=== PATIENT | female | born 1935 | race Caucasian/White ===

== ENCOUNTER 2016-09-24 10:30 | Inpatient (IN) | payer MEDICARE, BC ==
[~2016-09-24] VITALS: Ht 154.9 cm; Wt 77.2 kg
[2016-09-24] MEDS: WARFARIN 2.5 MG TABLET PO-COUM SCH (07:38)
[~2016-09-24 10:30] MED LIST: ASCO10004 PO; ASPI-496 PO; ATOR40TA78 PO; CALC-72 PO; CHLO25TA PO; CHOL20002 PO; ESTR1TAB15 PO; FLEC100T PO; HYDR-3342 PO; MEDR2.5T30 PO; MELO7.5T5 PO; MULT-658 PO; OMEP40CA6 PO; PHYT10AM IM; SPIR25TA PO; UBID100C11 PO; VALS320T2 PO; VITA1CAP PO; WARF2.5T73 PO; WARF5TAB7 PO
[2016-09-24] MEDS ORDERED: HEPARIN 1,000 UNITS/ML, 10ML ONE (12:16)
[2016-09-24] MEDS ORDERED: ROCURONIUM 10 MG/ML ONE (12:16)
[2016-09-24] MEDS ORDERED: NEOSTIGMINE 1 MG/ML, 10ML ONE (12:16)
[2016-09-24] MEDS ORDERED: THROMBIN 20,000 UNIT VIAL TP ONE (12:16)
[2016-09-24] MEDS ORDERED: FENTANYL PF 100 MCG/2ML ONE (12:16)
[2016-09-24] MEDS ORDERED: MIDAZOLAM 1 MG/ML, 2ML ONE (12:16)
[2016-09-24] MEDS ORDERED: SUCCINYLCHOLINE 20 MG/ML, 10ML ONE (12:16)
[2016-09-24] MEDS ORDERED: OXYcodone 5 MG/5 ML ORAL.SOL UDC ONE (12:16)
[2016-09-24] MEDS ORDERED: PROPOFOL 10 MG/ML, 20ML ONE (12:16)
[2016-09-24] MEDS ORDERED: PROTAMINE SULFATE 10 MG/ML, 5ML ONE (12:16)
[2016-09-24] MEDS ORDERED: HYDROmorphone 1 MG/ML, 1ML ONE (12:16)
[2016-09-24] MEDS ORDERED: CEFAZOLIN 1,000 MG ONE (12:16)
[2016-09-24] MEDS ORDERED: GLYCOPYRROLATE 0.2MG/1ML ONE (12:16)
[2016-09-24] MEDS ORDERED: BACITRACIN 50,000 UNIT ONE (12:16)
[2016-09-24] MEDS: D5%-0.45NACL+KCL 20MEQ 1,000 ML IV SCH (21:34)
[2016-09-24] MEDS: ZOLPIDEM 5MG TABLET PO PRN (22:13)
[2016-09-24] MEDS: ACETAMINOPHEN 500 MG TABLET PO SCH (23:12)
[2016-09-24] MEDS: FLECAINIDE 100MG TABLET PO SCH (23:13)
[2016-09-25] MEDS: ZOLPIDEM 5MG TABLET PO PRN (00:37)
[2016-09-25] MEDS: OXYcodone 5 MG/5 ML ORAL.SOL UDC PO PRN ×2 (04:05→13:00)
[2016-09-25] MEDS: ACETAMINOPHEN 500 MG TABLET PO SCH ×3 (04:58→17:20)
[2016-09-25] MEDS ORDERED: ACETAMINOPHEN 500 MG TABLET ONE ×2 (08:20→17:49)
[2016-09-25] MEDS: ASPIRIN 81 MG TABLET EC PO SCH (08:30)
[2016-09-25] MEDS: VALSARTAN 320 MG TABLET PO SCH (08:30)
[2016-09-25] MEDS: ASCORBIC ACID 500 MG TABLET PO SCH (08:30)
[2016-09-25] MEDS: CHLORTHALIDONE 25 MG TABLET PO SCH (08:30)
[2016-09-25] MEDS: CHOLECALCIFEROL 1,000 UNIT TABLET PO SCH (08:30)
[2016-09-25] MEDS: SPIRONOLACTONE 50 MG TABLET PO SCH (08:30)
[2016-09-25] MEDS: ESTRADIOL 1 MG TABLET PO SCH (08:30)
[2016-09-25] MEDS: MULTIVITS,STRESS FORMULA 1 TABLET PO SCH (08:30)
[2016-09-25] MEDS: FLECAINIDE 100MG TABLET PO SCH ×2 (08:30→22:13)
[2016-09-25] MEDS: D5%-0.45NACL+KCL 20MEQ 1,000 ML IV SCH (08:30)
[2016-09-25] MEDS: CALCIUM/VITAMIN D3 250-125 TABLET PO SCH (08:30)
[2016-09-25] MEDS: OMEPRAZOLE 20 MG CAPSULE.DR PO SCH (16:00)
[2016-09-25] MEDS: WARFARIN 2.5 MG TABLET PO-COUM SCH (17:45)
[2016-09-25 19:30] VITALS: BP 167/61
[2016-09-25] MEDS ORDERED: DIPHENHYDRAMINE 25 MG CAPSULE PO PRN (21:00)
[2016-09-25] MEDS ORDERED: ATORVASTATIN 40 MG TABLET PO SCH (21:00)
[2016-09-25] MEDS ORDERED: HYDROcodone/APAP 5/325 TABLET ONE (21:57)
[2016-09-25] MEDS ORDERED: DIPHENHYDRAMINE 25 MG CAPSULE ONE (21:58)
[2016-09-25] MEDS ORDERED: ZOLPIDEM 5MG TABLET ONE (22:08)
[2016-09-25] MEDS: HYDROcodone/APAP 5/325 TABLET PO PRN (22:12)
[2016-09-25] MEDS: POTASSIUM CHLORIDE 20 MEQ TAB.ER.PRT PO SCH (22:24)
[2016-09-25] MEDS ORDERED: TRIAZOLAM 0.125 MG TABLET PO PRN (23:45)
[2016-09-25] MEDS ORDERED: HYDROmorphone 1 MG/ML, 1ML IV PRN ×4 (23:45)
[2016-09-25] MEDS ORDERED: ACETAMINOPHEN 325 MG TABLET PO PRN (23:45)
[2016-09-25] MEDS ORDERED: ONDANSETRON 2MG/ML, 2ML IVPush PRN (23:45)
[2016-09-25] MEDS ORDERED: FENTANYL PF 100 MCG/2ML IV PRN (23:45)
[2016-09-25] MEDS ORDERED: morphine SULFATE 10 MG/ML, 1ML IVPush PRN (23:45)
[2016-09-25] MEDS ORDERED: D5%-0.45NACL+KCL 20MEQ 1,000 ML IV SCH (23:45)
[2016-09-25] MEDS ORDERED: OXYcodone IR 5MG TABLET PO PRN (23:45)
[2016-09-26] MEDS: ACETAMINOPHEN 500 MG TABLET PO SCH ×2 (02:03→05:57)
[2016-09-26 02:40] VITALS: BP 133/63
[2016-09-26] MEDS: ASPIRIN 81 MG TABLET EC PO SCH (05:58)
[2016-09-26] MEDS: HYDROcodone/APAP 5/325 TABLET PO PRN ×2 (05:58→10:40)
[2016-09-26] MEDS: OMEPRAZOLE 20 MG CAPSULE.DR PO SCH (07:30)
[2016-09-26] MEDS: POTASSIUM CHLORIDE 20 MEQ TAB.ER.PRT PO SCH (08:00)
[2016-09-26 08:02] VITALS: BP 160/66
[2016-09-26] MEDS: ASCORBIC ACID 500 MG TABLET PO SCH (09:00)
[2016-09-26] MEDS: CHLORTHALIDONE 25 MG TABLET PO SCH (09:00)
[2016-09-26] MEDS: CHOLECALCIFEROL 1,000 UNIT TABLET PO SCH (09:00)
[2016-09-26] MEDS ORDERED: MULTIVITAMIN 1 TABLET PO SCH (09:00)
[2016-09-26] MEDS: CALCIUM/VITAMIN D3 250-125 TABLET PO SCH (09:00)
[2016-09-26] MEDS: SPIRONOLACTONE 50 MG TABLET PO SCH (09:00)
[2016-09-26] MEDS: ESTRADIOL 1 MG TABLET PO SCH (09:00)
[2016-09-26] MEDS: MULTIVITS,STRESS FORMULA 1 TABLET PO SCH (09:00)
[2016-09-26] MEDS ORDERED: MELOXICAM 15 MG TABLET PO SCH (09:00)
[2016-09-26] MEDS: VALSARTAN 320 MG TABLET PO SCH (09:00)
[2016-09-26] MEDS ORDERED: MEDROXYPROGESTERONE ACETATE 2.5 MG TABLET PO SCH (09:00)
[2016-09-26] MEDS ORDERED: HYDR-3240 PO (10:49)
[2016-09-26 14:46] LABS: BLOOD UREA NITROGEN 12 mg/dL (7-18)
[2016-09-27] MEDS ORDERED: WARFARIN 5 MG TABLET PO-COUM SCH (18:00)
== END 2016-09-26 11:00 | disposition home or self-care (01) | DRG 254 ==
LOC: RAD 10:30 → 4NOR 09-25 18:00 → RAD 09-25 18:00 → 4NOR 09-25 20:37 → DCLOUNGE 09-26 10:46
PROVIDERS: ADMIT Surgery; ATTEND Surgery
PROC: 04CK0ZZ Extirpation of Matter from Right Femoral Artery, Open Approach (ICD-10-PCS; 2016-09-24)
PROC: 04UL07Z Supplement Left Femoral Artery with Autologous Tissue Substitute, Open Approach (ICD-10-PCS; 2016-09-24)
PROC: 04UK07Z Supplement Right Femoral Artery with Autologous Tissue Substitute, Open Approach (ICD-10-PCS; 2016-09-24)
PROC: 06BM0ZZ Excision of Right Femoral Vein, Open Approach (ICD-10-PCS; 2016-09-24)
PROC: B41D1ZZ Fluoroscopy of Aorta and Bilateral Lower Extremity Arteries using Low Osmolar Contrast (ICD-10-PCS; 2016-09-24)
PROC: 04CL0ZZ Extirpation of Matter from Left Femoral Artery, Open Approach (ICD-10-PCS; principal; 2016-09-24 13:00)
DX: I70.213 Atherosclerosis of native arteries of extremities with intermittent claudication, bilateral legs (principal); I48.91 Unspecified atrial fibrillation; E66.3 Overweight; K21.9 Gastro-esophageal reflux disease without esophagitis; M19.90 Unspecified osteoarthritis, unspecified site; Z68.32 Body mass index [BMI] 32.0-32.9, adult
CPT/HCPCS: 36415; 75630; 76937; 80048; 85025; 85610; 85730; 86850; 86900; J0690; J1170; J1644; J2250; J2704; J2710; J2720; J3010; J3490; C1751; C1769; C1894; J0330; J3480; Q0163

== ENCOUNTER 2018-01-10 10:45 | Observation (INO) | payer MEDICARE, BC ==
[~2018-01-10] VITALS: Ht 152.4 cm; Wt 64.0 kg
[2018-01-10 05:43] VITALS: BP 121/34
[~2018-01-10 10:45] MED LIST changes: +ATOR40TA PO; +CALC-534 PO; -CALC-72 PO; -CHOL20002 PO; +CHOL200052 PO; +HYDR-3240 PO; +IRBE300T16 PO; +LIDOCAINE-MPF 2%, 2ML ONE; -UBID100C11 PO; +UBID100C41 PO; +WARF-36 PO; -WARF5TAB7 PO
[2018-01-10 11:19] VITALS: BP 135/72
[2018-01-10 11:21] LABS: BASOPHILS # (AUTO) 0.02 x10^3/uL (0-0.1); BASOPHILS % (AUTO) 0 % (0-1); EOSINOPHILS # (AUTO) 0.12 x10^3/uL (0-0.4); EOSINOPHILS % (AUTO) 1 % (1-7); LYMPHOCYTES # (AUTO) 1.95 x10^3/uL (1-3.4); LYMPHOCYTES % (AUTO) 20 % (22-44); MD NO; MEAN CORPUSCULAR HEMOGLOBIN 31.9 pg (27.0-34.8); MEAN CORPUSCULAR HGB CONC 34.2 g/dL (32.4-35.8); MEAN CORPUSCULAR VOLUME 93.3 fL (80-100); MEAN PLATELET VOLUME 8.1 fL (7.4-10.4); MONOCYTES # (AUTO) 0.66 x10^3/uL (0.2-0.8); MONOCYTES % (AUTO) 7 % (2-9); NEUTROPHILS # (AUTO) 6.89 x10^3/uL (1.8-6.8); NEUTROPHILS % (AUTO) 72 % (42-75); PLATELET COUNT 267 x10^3/uL (130-400); RED CELL DISTRIBUTION WIDTH 14.7 % (9.6-15.2)
[2018-01-10] MEDS: D5%-0.45% NACL 1,000 ML IV SCH ×2 (11:23→21:48)
[2018-01-10 11:29] LABS: INTERNATIONAL NORMALIZED RATIO 1.07 (0.93-1.1); PROTHROMBIN TIME 11.1 Seconds (9.6-11.5)
[2018-01-10 11:31] LABS: ANION GAP 7 mmol/L (5-15); CALCIUM 8.9 mg/dL (8.5-10.1); CHLORIDE 107 mmol/L (98-107)
[2018-01-10] MEDS ORDERED: ALTEPLASE 10 MG in SODIUM CHLORIDE 0.9% 90 ML IV SCH (13:30)
[2018-01-10] MEDS ORDERED: HEPARIN 25,000 UNITS/500ML PMX 500 ML IV PRN (13:30)
[2018-01-10] MEDS ORDERED: ONDANSETRON 2MG/ML, 2ML IV PRN (13:30)
[2018-01-10] MEDS ORDERED: CATHFLO-ALTEPLASE 2 MG/2 ML CATHFLUSH ONE (13:30)
[2018-01-10] MEDS ORDERED: HEPARIN 25,000 UNITS/500ML PMX 500 ML ONE (13:32)
[2018-01-10] MEDS ORDERED: hydrALAzine 20 MG/ML, 1ML ONE (15:02)
[2018-01-10] MEDS: hydrALAzine 20 MG/ML, 1ML IV PRN ×2 (15:06→16:02)
[2018-01-10 15:30] LABS: FIBRINOGEN 327 mg/dL (200-340); PARTIAL THROMBOPLASTIN TIME 28 Seconds (25-31)
[2018-01-10] MEDS: SODIUM CHLORIDE 0.9% 1,000 ML IV SCH ×2 (16:22→21:48)
[2018-01-10] MEDS ORDERED: ZOLPIDEM 5MG TABLET PO PRN (21:00)
[2018-01-10] MEDS ORDERED: WARFARIN 5 MG TABLET PO-COUM SCH (21:00)
[2018-01-10] MEDS: ENOXAPARIN 60 MG/0.6 ML SQ SCH (21:48)
[2018-01-11] MEDS: morphine SULFATE 10 MG/ML, 1ML IVPush PRN ×2 (01:26→01:52)
[2018-01-11] MEDS: SODIUM CHLORIDE 0.9% 1,000 ML IV SCH (01:52)
[2018-01-11] MEDS: ENOXAPARIN 60 MG/0.6 ML SQ SCH (09:23)
== END 2018-01-11 15:16 | disposition home or self-care (01) ==
LOC: OUT 10:45 → ORIP 13:30 → CCU 14:34
PROVIDERS: ADMIT Surgery; ATTEND Surgery
DX: I74.3 Embolism and thrombosis of arteries of the lower extremities (principal); I70.202 Unspecified atherosclerosis of native arteries of extremities, left leg
CPT/HCPCS: 36415; 37211; 37225; 75630; 76937; 80048; 85025; 85384; 85610; 85730; 87081; 96365; 96366; 96368; 96375; 96376; 99156; 99157; C1725; C1751; C1769; C1884; C1894; G0378; J0360; J1644; J1650; J2250; J2270; J2997; J3010; J3490; J7030; 37214; J2720; J2310

== ENCOUNTER 2018-07-17 15:32 | Inpatient (IN) | payer MEDICARE, BC ==
[~2018-07-17] VITALS: Ht 152.4 cm; Wt 70.1 kg
[~2018-07-17 15:32] MED LIST changes: -LIDOCAINE-MPF 2%, 2ML ONE; +WARF2.5T32 PO; -WARF2.5T73 PO
--- NOTE | 2018-07-17 15:50 | NUR ---
Patient in [place].
[2018-07-17 16:02] LABS: BASOPHILS # (AUTO) 0.06 x10^3/uL (0-0.1); BASOPHILS % (AUTO) 1 % (0-1); EOSINOPHILS # (AUTO) 0.18 x10^3/uL (0-0.4); EOSINOPHILS % (AUTO) 2 % (1-7); LYMPHOCYTES # (AUTO) 2.33 x10^3/uL (1-3.4); LYMPHOCYTES % (AUTO) 24 % (22-44); MD NO; MEAN CORPUSCULAR HEMOGLOBIN 29.9 pg (27.0-34.8); MEAN CORPUSCULAR HGB CONC 32.9 g/dL (32.4-35.8); MEAN PLATELET VOLUME 7.7 fL (7.4-10.4); MONOCYTES % (AUTO) 8 % (2-9); NEUTROPHILS # (AUTO) 6.17 x10^3/uL (1.8-6.8); NEUTROPHILS % (AUTO) 65 % (42-75); PLATELET COUNT 335 x10^3/uL (130-400); RED BLOOD COUNT 4.49 x10^6/uL (3.82-5.3)
[2018-07-17 16:05] LABS: INTERNATIONAL NORMALIZED RATIO 1.97 (0.93-1.1); PROTHROMBIN TIME 20.2 Seconds (9.6-11.5)
[2018-07-17 16:07] LABS: ALANINE AMINOTRANSFERASE 30 U/L (12-78); ALBUMIN 3.7 g/dL (3.4-5.0); ANION GAP 6 mmol/L (5-15); CALCIUM 9.1 mg/dL (8.5-10.1); CHLORIDE 106 mmol/L (98-107)
[2018-07-17 16:10] LABS: ALKALINE PHOSPHATASE 86 U/L (45-117); BILIRUBIN,TOTAL 0.3 mg/dL (0.2-1.0); TOTAL PROTEIN 6.7 g/dL (6.4-8.2)
--- NOTE | 2018-07-17 16:24 | NUR ---
[place] from [place] aware.
[2018-07-17] MEDS ORDERED: OMEG1CAP23 PO (16:41)
[2018-07-17] MEDS ORDERED: HYDR25TA6 PO (16:41)
--- NOTE | 2018-07-17 16:47 | NUR ---
IV started. VSS. Registration at bedside.
--- NOTE | 2018-07-17 17:13 | NUR ---
Per MD. Unable to obtain left dorsalis pedis pulse via doppler. Foot warm to touch.
[2018-07-17] MEDS ORDERED: HYDR-3342 PO (17:14)
[2018-07-17] MEDS ORDERED: DOXY100C PO (17:14)
--- NOTE | 2018-07-17 18:01 | NUR ---
Dawson Trivedi NP ([facility]) at bedside evaluating patient.
--- NOTE | 2018-07-17 19:14 | NUR ---
Ambulated with a steady gait to the restroom.
--- NOTE | 2018-07-17 19:22 | NUR ---
Report AVEL Paiz.
[2018-07-17] MEDS ORDERED: POLYETHYLENE GLYCOL 17 GM PACKET PO PRN (20:00)
[2018-07-17] MEDS ORDERED: BISACODYL 10 MG SUPP PR PRN (20:00)
[2018-07-17] MEDS ORDERED: ACETAMINOPHEN 325 MG TABLET PO PRN (20:00)
[2018-07-17] MEDS ORDERED: hydrALAzine 20 MG/ML, 1ML IVPush PRN (20:00)
[2018-07-17] MEDS ORDERED: ONDANSETRON ODT 4 MG PO PRN (20:00)
[2018-07-17] MEDS ORDERED: LIDOCAINE GEL 2%, 5ML TP ONE (20:30)
[2018-07-17] MEDS: ATORVASTATIN 40 MG TABLET PO SCH (22:11)
[2018-07-17] MEDS: FLECAINIDE 100MG TABLET PO SCH (22:11)
[2018-07-17] MEDS: ZOLPIDEM 10MG TABLET PO PRN (22:11)
[2018-07-17] MEDS: SODIUM CHLORIDE FLUSH 10ML SYR IVF SCH (22:16)
[2018-07-18 05:59] LABS: INTERNATIONAL NORMALIZED RATIO 1.89 (0.93-1.1); PROTHROMBIN TIME 19.4 Seconds (9.6-11.5)
[2018-07-18 06:00] LABS: BASOPHILS # (AUTO) 0.02 x10^3/uL (0-0.1); BASOPHILS % (AUTO) 0 % (0-1); EOSINOPHILS % (AUTO) 1 % (1-7); LYMPHOCYTES # (AUTO) 1.81 x10^3/uL (1-3.4); LYMPHOCYTES % (AUTO) 22 % (22-44); MD NO; MEAN CORPUSCULAR HEMOGLOBIN 31.1 pg (27.0-34.8); MEAN CORPUSCULAR HGB CONC 34.1 g/dL (32.4-35.8); MEAN CORPUSCULAR VOLUME 91.4 fL (80-100); MEAN PLATELET VOLUME 7.7 fL (7.4-10.4); MONOCYTES # (AUTO) 0.75 x10^3/uL (0.2-0.8); MONOCYTES % (AUTO) 9 % (2-9); NEUTROPHILS # (AUTO) 5.69 x10^3/uL (1.8-6.8); NEUTROPHILS % (AUTO) 68 % (42-75); PLATELET COUNT 272 x10^3/uL (130-400); RED BLOOD COUNT 4.04 x10^6/uL (3.82-5.3); RED CELL DISTRIBUTION WIDTH 13.7 % (9.6-15.2)
[2018-07-18 06:04] LABS: ALBUMIN 3.1 g/dL (3.4-5.0); ANION GAP 7 mmol/L (5-15); CALCIUM 8.8 mg/dL (8.5-10.1); CHLORIDE 107 mmol/L (98-107)
[2018-07-18 06:08] LABS: ALANINE AMINOTRANSFERASE 28 U/L (12-78); ALKALINE PHOSPHATASE 73 U/L (45-117); BILIRUBIN,TOTAL 0.3 mg/dL (0.2-1.0); CREATININE 0.63 mg/dL (0.55-1.02); TOTAL PROTEIN 6.1 g/dL (6.4-8.2)
[2018-07-18] MEDS: MEDROXYPROGESTERONE ACETATE 2.5 MG TABLET PO SCH (08:27)
[2018-07-18] MEDS: CHOLECALCIFEROL 1,000 UNIT TABLET PO SCH (08:27)
[2018-07-18] MEDS: MULTIVITS,STRESS FORMULA 1 TABLET PO SCH (08:28)
[2018-07-18] MEDS: ASCORBIC ACID 500 MG TABLET PO SCH (08:28)
[2018-07-18] MEDS: CALCIUM/VITAMIN D3 250-125 TABLET PO SCH (08:28)
[2018-07-18] MEDS: SPIRONOLACTONE 25 MG TABLET PO SCH (08:29)
[2018-07-18] MEDS: ESTRADIOL 1 MG TABLET PO SCH (08:29)
[2018-07-18] MEDS: IRBESARTAN 300 MG TABLET PO SCH (08:29)
[2018-07-18] MEDS: PANTOPROZOLE 40MG TABLET PO SCH (08:30)
[2018-07-18] MEDS: FLECAINIDE 100MG TABLET PO SCH ×2 (08:30→22:51)
[2018-07-18] MEDS: SENNA/DOCUSATE TABLET PO SCH (08:31)
[2018-07-18] MEDS: HYDROCHLOROTHIAZIDE 25 MG TABLET PO SCH (08:31)
[2018-07-18] MEDS: SODIUM CHLORIDE FLUSH 10ML SYR IVF SCH ×2 (08:32→22:52)
[2018-07-18] MEDS: MULTIVITAMIN 1 TABLET PO SCH (08:37)
[2018-07-18 08:43] VITALS: BP 132/64
[2018-07-18] MEDS ORDERED: ASPIRIN 81 MG TABLET EC PO SCH (09:00)
[2018-07-18] MEDS ORDERED: TEMPLATE NON-FORMULARY MED. (Ubidecarenone** (Co Q-10**) 300 MG) PO SCH (09:00)
[2018-07-18 12:50] VITALS: BP 128/60
[2018-07-18 18:29] VITALS: BP 163/59
[2018-07-18] MEDS: ZOLPIDEM 10MG TABLET PO PRN (22:52)
[2018-07-18] MEDS: ATORVASTATIN 40 MG TABLET PO SCH (22:52)
[2018-07-19 00:30] VITALS: BP 120/58
[2018-07-19 05:34] LABS: INTERNATIONAL NORMALIZED RATIO 1.44 (0.93-1.1); PROTHROMBIN TIME 14.9 Seconds (9.6-11.5)
[2018-07-19 08:58] VITALS: BP 142/66
[2018-07-19] MEDS: ASCORBIC ACID 500 MG TABLET PO SCH (09:15)
[2018-07-19] MEDS: MULTIVITAMIN 1 TABLET PO SCH (09:15)
[2018-07-19] MEDS: CALCIUM/VITAMIN D3 250-125 TABLET PO SCH (09:15)
[2018-07-19] MEDS: SENNA/DOCUSATE TABLET PO SCH (09:15)
[2018-07-19] MEDS: CHOLECALCIFEROL 1,000 UNIT TABLET PO SCH (09:16)
[2018-07-19] MEDS: MULTIVITS,STRESS FORMULA 1 TABLET PO SCH (09:16)
[2018-07-19] MEDS: SODIUM CHLORIDE FLUSH 10ML SYR IVF SCH ×2 (09:22→21:23)
[2018-07-19] MEDS: HYDROCHLOROTHIAZIDE 25 MG TABLET PO SCH (09:23)
[2018-07-19] MEDS: PANTOPROZOLE 40MG TABLET PO SCH (09:23)
[2018-07-19] MEDS: MEDROXYPROGESTERONE ACETATE 2.5 MG TABLET PO SCH (09:23)
[2018-07-19] MEDS: SPIRONOLACTONE 25 MG TABLET PO SCH (09:23)
[2018-07-19] MEDS: ESTRADIOL 1 MG TABLET PO SCH (09:23)
[2018-07-19] MEDS: IRBESARTAN 300 MG TABLET PO SCH (09:24)
[2018-07-19] MEDS: AQUAPHOR NATURAL HEALING OINT 50GM TP SCH (09:24)
[2018-07-19] MEDS: FLECAINIDE 100MG TABLET PO SCH ×2 (09:24→21:22)
[2018-07-19 12:57] VITALS: BP 120/61
[2018-07-19 19:42] VITALS: BP 126/55
[2018-07-19] MEDS: ZOLPIDEM 10MG TABLET PO PRN (21:22)
[2018-07-19] MEDS: ATORVASTATIN 40 MG TABLET PO SCH (21:22)
[2018-07-20 04:52] VITALS: BP 101/42
[2018-07-20 05:27] LABS: INTERNATIONAL NORMALIZED RATIO 1.17 (0.93-1.1); PROTHROMBIN TIME 12.2 Seconds (9.6-11.5)
[2018-07-20 07:10] VITALS: BP 133/65
[2018-07-20] MEDS: SENNA/DOCUSATE TABLET PO SCH (09:00)
[2018-07-20] MEDS: SODIUM CHLORIDE FLUSH 10ML SYR IVF SCH ×3 (09:00→20:35)
[2018-07-20] MEDS: SPIRONOLACTONE 25 MG TABLET PO SCH (09:00)
[2018-07-20] MEDS: MEDROXYPROGESTERONE ACETATE 2.5 MG TABLET PO SCH (09:00)
[2018-07-20] MEDS: MULTIVITS,STRESS FORMULA 1 TABLET PO SCH (09:00)
[2018-07-20] MEDS: CALCIUM/VITAMIN D3 250-125 TABLET PO SCH (09:00)
[2018-07-20] MEDS: HYDROCHLOROTHIAZIDE 25 MG TABLET PO SCH (09:00)
[2018-07-20] MEDS: AQUAPHOR NATURAL HEALING OINT 50GM TP SCH (09:00)
[2018-07-20] MEDS: ASCORBIC ACID 500 MG TABLET PO SCH (09:00)
[2018-07-20] MEDS: IRBESARTAN 300 MG TABLET PO SCH (09:00)
[2018-07-20] MEDS: MULTIVITAMIN 1 TABLET PO SCH (09:00)
[2018-07-20] MEDS: CHOLECALCIFEROL 1,000 UNIT TABLET PO SCH (09:00)
[2018-07-20] MEDS: PANTOPROZOLE 40MG TABLET PO SCH (09:00)
[2018-07-20] MEDS: ESTRADIOL 1 MG TABLET PO SCH (09:00)
[2018-07-20] MEDS: FLECAINIDE 100MG TABLET PO SCH ×2 (09:00→20:35)
[2018-07-20] MEDS ORDERED: HEPARIN 5,000 UNITS/ML, 1ML ONE (09:52)
[2018-07-20] MEDS ORDERED: NALOXONE 1 MG/ML, 2ML ONE (09:52)
[2018-07-20] MEDS ORDERED: FLUMAZENIL 0.1 MG/1 ML, 5ML ONE (09:52)
[2018-07-20] MEDS ORDERED: FENTANYL PF 100 MCG/2ML ONE (09:52)
[2018-07-20] MEDS ORDERED: MIDAZOLAM 1 MG/ML, 5ML ONE (09:52)
[2018-07-20] MEDS ORDERED: PROTAMINE SULFATE 10 MG/ML, 25ML ONE (09:53)
[2018-07-20] MEDS ORDERED: LIDOCAINE-MPF 1%, 5ML ONE (10:01)
[2018-07-20] MEDS ORDERED: NITROGLYCERIN 5 MG/ML, 10ML ONE (11:11)
[2018-07-20] MEDS ORDERED: NITROGLYCERIN/D5W PMX 0 ML ONE (12:41)
[2018-07-20 14:01] VITALS: BP 155/59
[2018-07-20 19:41] VITALS: BP 138/64
[2018-07-20 20:19] LABS: BASOPHILS # (AUTO) 0.02 x10^3/uL (0-0.1); BASOPHILS % (AUTO) 0 % (0-1); EOSINOPHILS # (AUTO) 0.03 x10^3/uL (0-0.4); EOSINOPHILS % (AUTO) 0 % (1-7); LYMPHOCYTES # (AUTO) 1.36 x10^3/uL (1-3.4); LYMPHOCYTES % (AUTO) 13 % (22-44); MD NO; MEAN CORPUSCULAR HEMOGLOBIN 31.3 pg (27.0-34.8); MEAN CORPUSCULAR HGB CONC 34.4 g/dL (32.4-35.8); MEAN PLATELET VOLUME 7.4 fL (7.4-10.4); MONOCYTES % (AUTO) 9 % (2-9); NEUTROPHILS # (AUTO) 7.84 x10^3/uL (1.8-6.8); NEUTROPHILS % (AUTO) 77 % (42-75); PLATELET COUNT 284 x10^3/uL (130-400); RED BLOOD COUNT 4.05 x10^6/uL (3.82-5.3); RED CELL DISTRIBUTION WIDTH 13.8 % (9.6-15.2)
[2018-07-20] MEDS: ATORVASTATIN 40 MG TABLET PO SCH (20:35)
[2018-07-20] MEDS: ZOLPIDEM 10MG TABLET PO PRN (20:40)
[2018-07-21 00:58] VITALS: BP 155/58
[2018-07-21 05:18] LABS: BASOPHILS # (AUTO) 0.03 x10^3/uL (0-0.1); BASOPHILS % (AUTO) 0 % (0-1); EOSINOPHILS # (AUTO) 0.08 x10^3/uL (0-0.4); EOSINOPHILS % (AUTO) 1 % (1-7); LYMPHOCYTES # (AUTO) 1.38 x10^3/uL (1-3.4); LYMPHOCYTES % (AUTO) 14 % (22-44); MD NO; MEAN CORPUSCULAR HEMOGLOBIN 30.6 pg (27.0-34.8); MEAN CORPUSCULAR HGB CONC 33.4 g/dL (32.4-35.8); MEAN CORPUSCULAR VOLUME 91.6 fL (80-100); MONOCYTES # (AUTO) 0.94 x10^3/uL (0.2-0.8); MONOCYTES % (AUTO) 10 % (2-9); NEUTROPHILS # (AUTO) 7.31 x10^3/uL (1.8-6.8); NEUTROPHILS % (AUTO) 75 % (42-75); PLATELET COUNT 253 x10^3/uL (130-400); RED BLOOD COUNT 3.89 x10^6/uL (3.82-5.3)
[2018-07-21 05:26] LABS: ANION GAP 6 mmol/L (5-15); CALCIUM 8.2 mg/dL (8.5-10.1); CHLORIDE 111 mmol/L (98-107)
[2018-07-21 05:27] LABS: CREATININE 0.55 mg/dL (0.55-1.02)
[2018-07-21] MEDS: SODIUM CHLORIDE FLUSH 10ML SYR IVF SCH ×2 (07:36→08:01)
[2018-07-21 07:58] VITALS: BP 103/58
[2018-07-21] MEDS: SENNA/DOCUSATE TABLET PO SCH (08:00)
[2018-07-21] MEDS: CHOLECALCIFEROL 1,000 UNIT TABLET PO SCH (08:01)
[2018-07-21] MEDS: MULTIVITS,STRESS FORMULA 1 TABLET PO SCH (08:02)
[2018-07-21] MEDS: IRBESARTAN 300 MG TABLET PO SCH (08:02)
[2018-07-21] MEDS: HYDROCHLOROTHIAZIDE 25 MG TABLET PO SCH (08:02)
[2018-07-21] MEDS: SPIRONOLACTONE 25 MG TABLET PO SCH (08:02)
[2018-07-21] MEDS: FLECAINIDE 100MG TABLET PO SCH (08:02)
[2018-07-21] MEDS: CALCIUM/VITAMIN D3 250-125 TABLET PO SCH (08:02)
[2018-07-21] MEDS: MULTIVITAMIN 1 TABLET PO SCH (08:02)
[2018-07-21] MEDS: MEDROXYPROGESTERONE ACETATE 2.5 MG TABLET PO SCH (08:02)
[2018-07-21] MEDS: PANTOPROZOLE 40MG TABLET PO SCH (08:02)
[2018-07-21] MEDS: ESTRADIOL 1 MG TABLET PO SCH (08:03)
[2018-07-21] MEDS: ASCORBIC ACID 500 MG TABLET PO SCH (08:03)
[2018-07-21 08:05] VITALS: BP 113/62
[2018-07-21] MEDS: AQUAPHOR NATURAL HEALING OINT 50GM TP SCH (08:17)
[2018-07-21 11:00] VITALS: BP 113/62
== END 2018-07-21 11:15 | disposition home or self-care (01) | DRG 253 ==
LOC: ED 16:48 → EDIP 17:04 → 4NOR 19:45 → DCLOUNGE 07-21 11:14
PROVIDERS: ADMIT Internal Medicine; ATTEND Internal Medicine
PROC: 047K3ZZ Dilation of Right Femoral Artery, Percutaneous Approach (ICD-10-PCS; principal; 2018-07-20)
PROC: 047L3Z1 Dilation of Left Femoral Artery using Drug-Coated Balloon, Percutaneous Approach (ICD-10-PCS; 2018-07-20)
PROC: 047N3Z1 Dilation of Left Popliteal Artery using Drug-Coated Balloon, Percutaneous Approach (ICD-10-PCS; 2018-07-20)
PROC: 047S3Z1 Dilation of Left Posterior Tibial Artery using Drug-Coated Balloon, Percutaneous Approach (ICD-10-PCS; 2018-07-20)
DX: I70.222 Atherosclerosis of native arteries of extremities with rest pain, left leg (principal); E44.0 Moderate protein-calorie malnutrition; M19.90 Unspecified osteoarthritis, unspecified site; I10 Essential (primary) hypertension; E78.5 Hyperlipidemia, unspecified; I99.8 Other disorder of circulatory system; I77.1 Stricture of artery; I48.91 Unspecified atrial fibrillation; Z87.891 Personal history of nicotine dependence; Z82.49 Family history of ischemic heart disease and other diseases of the circulatory system; Z80.1 Family history of malignant neoplasm of trachea, bronchus and lung; Z79.01 Long term (current) use of anticoagulants; Z82.3 Family history of stroke; T45.515A Adverse effect of anticoagulants, initial encounter; R79.1 Abnormal coagulation profile
CPT/HCPCS: 36415; 37224; 37228; 75710; 80048; 80053; 85025; 85610; 93005; 99156; 99157; 99285; C1725; G0378; J1644; J2250; J2720; J3010; C1751; C1769; C1894; C2623; J2310

== ENCOUNTER 2018-09-29 06:32 | Day surgery (SDC) | payer MEDICARE, BC ==
[~2018-09-29] VITALS: Ht 152.4 cm; Wt 67.7 kg
[~2018-09-29 06:32] MED LIST changes: +DOXY100C PO; +HYDR25TA6 PO; +OMEG1CAP23 PO
[2018-09-29] MEDS ORDERED: LIDOCAINE-MPF 1%, 5ML ONE (07:25)
[2018-09-29 07:33] VITALS: BP 146/60
[2018-09-29] MEDS ORDERED: SODIUM CHLORIDE 0.9% 1,000 ML IV SCH ×2 (07:35→10:08)
[2018-09-29] MEDS ORDERED: CEPH-368 PO (07:36)
[2018-09-29] MEDS ORDERED: VISIPAQUE 270 MG/ML, 150ML BOTTLE ONE (08:00)
[2018-09-29 08:09] LABS: BASOPHILS # (AUTO) 0.03 x10^3/uL (0-0.1); BASOPHILS % (AUTO) 0 % (0-1); EOSINOPHILS # (AUTO) 0.13 x10^3/uL (0-0.4); EOSINOPHILS % (AUTO) 2 % (1-7); LYMPHOCYTES # (AUTO) 1.64 x10^3/uL (1-3.4); LYMPHOCYTES % (AUTO) 21 % (22-44); MD NO; MEAN CORPUSCULAR HEMOGLOBIN 28.6 pg (27.0-34.8); MEAN CORPUSCULAR HGB CONC 32.7 g/dL (32.4-35.8); MEAN CORPUSCULAR VOLUME 87.6 fL (80-100); MEAN PLATELET VOLUME 7.3 fL (7.4-10.4); MONOCYTES # (AUTO) 0.77 x10^3/uL (0.2-0.8); MONOCYTES % (AUTO) 10 % (2-9); NEUTROPHILS # (AUTO) 5.47 x10^3/uL (1.8-6.8); NEUTROPHILS % (AUTO) 68 % (42-75); PLATELET COUNT 282 x10^3/uL (130-400); RED BLOOD COUNT 4.46 x10^6/uL (3.82-5.3); RED CELL DISTRIBUTION WIDTH 14.9 % (9.6-15.2)
[2018-09-29] MEDS ORDERED: HEPARIN 1,000 UNITS/ML, 10ML ONE (08:11)
[2018-09-29] MEDS ORDERED: NALOXONE 1 MG/ML, 2ML ONE (08:11)
[2018-09-29] MEDS ORDERED: FENTANYL PF 100 MCG/2ML ONE (08:11)
[2018-09-29] MEDS ORDERED: MIDAZOLAM 1 MG/ML, 5ML ONE (08:11)
[2018-09-29] MEDS ORDERED: PROTAMINE SULFATE 10 MG/ML, 25ML ONE (08:11)
[2018-09-29] MEDS ORDERED: FLUMAZENIL 0.1 MG/1 ML, 5ML ONE (08:11)
[2018-09-29 08:18] LABS: ALBUMIN 3.4 g/dL (3.4-5.0); ANION GAP 7 mmol/L (5-15); CALCIUM 8.8 mg/dL (8.5-10.1); CHLORIDE 105 mmol/L (98-107)
[2018-09-29 08:22] LABS: ALANINE AMINOTRANSFERASE 28 U/L (12-78); ALKALINE PHOSPHATASE 76 U/L (45-117); BILIRUBIN,TOTAL 0.5 mg/dL (0.2-1.0); CREATININE 0.76 mg/dL (0.55-1.02); TOTAL PROTEIN 6.8 g/dL (6.4-8.2)
[2018-09-29] MEDS ORDERED: hydrALAzine 20 MG/ML, 1ML ONE (09:33)
[2018-09-29] MEDS ORDERED: WARFARIN 5 MG TABLET PO-COUM SCH (10:30)
[2018-09-29] MEDS ORDERED: CEPHALEXIN 500 MG CAPSULE PO SCH (11:00)
[2018-09-29] MEDS ORDERED: HYDROcodone/APAP 5/325 TABLET ONE (14:25)
[2018-09-29] MEDS ORDERED: HYDROcodone/APAP 5/325 TABLET PO ONE (14:30)
[2018-09-29] MEDS ORDERED: FLECAINIDE 100MG TABLET PO SCH (21:00)
[2018-09-29] MEDS ORDERED: ATORVASTATIN 40 MG TABLET PO SCH (21:00)
[2018-09-30] MEDS ORDERED: MEDROXYPROGESTERONE ACETATE 2.5 MG TABLET PO SCH (09:00)
[2018-09-30] MEDS ORDERED: HYDROCHLOROTHIAZIDE 25 MG TABLET PO SCH (09:00)
[2018-09-30] MEDS ORDERED: MULTIVITAMIN 1 TABLET PO SCH (09:00)
[2018-09-30] MEDS ORDERED: ESTRADIOL 1 MG TABLET PO SCH (09:00)
[2018-09-30] MEDS ORDERED: IRBESARTAN 300 MG TABLET PO SCH (09:00)
[2018-09-30] MEDS ORDERED: ASPIRIN 81 MG TABLET EC PO SCH (09:00)
[2018-09-30] MEDS ORDERED: SPIRONOLACTONE 25 MG TABLET PO SCH (09:00)
== END 2018-09-29 16:30 | disposition home or self-care (01) ==
LOC: OUT 06:32 → UNDOADMOB 10:14 → ORIP 10:14
PROVIDERS: ATTEND Surgery
DX: I70.222 Atherosclerosis of native arteries of extremities with rest pain, left leg (principal); I70.212 Atherosclerosis of native arteries of extremities with intermittent claudication, left leg; I70.245 Atherosclerosis of native arteries of left leg with ulceration of other part of foot; L97.529 Non-pressure chronic ulcer of other part of left foot with unspecified severity; I77.1 Stricture of artery; I10 Essential (primary) hypertension; I48.91 Unspecified atrial fibrillation; I65.23 Occlusion and stenosis of bilateral carotid arteries; K21.9 Gastro-esophageal reflux disease without esophagitis; E78.5 Hyperlipidemia, unspecified; F17.210 Nicotine dependence, cigarettes, uncomplicated; E66.3 Overweight; Z68.28 Body mass index [BMI] 28.0-28.9, adult; Z72.89 Other problems related to lifestyle; Z79.82 Long term (current) use of aspirin; Z79.01 Long term (current) use of anticoagulants; Z79.890 Hormone replacement therapy; Z79.899 Other long term (current) drug therapy; Z98.890 Other specified postprocedural states; Z80.1 Family history of malignant neoplasm of trachea, bronchus and lung; Z82.49 Family history of ischemic heart disease and other diseases of the circulatory system
CPT/HCPCS: 36415; 37225; 75625; 75710; 80053; 85025; 99156; 99157; C1724; C1725; C1769; C1894; C2623; J0360; J1644; J2250; J2720; J3010; Q9966; J2310